=== PATIENT | female | born 1945 | race Caucasian/White ===

== ENCOUNTER → 2018-02-02 | Outpatient (CLI) | payer MEDICARE, OTHER ==
[2018-02-02 15:29] LABS: HCT 43.7 % (34.0-46.0); HGB 14.7 gm/dL (11.4-16.0); MCH 30.8 pg (25.0-35.0); MCHC 33.6 g/dL (31.0-37.0); MCV 91.4 fL (80.0-100.0); Mean Platelet Volume 7.1; Platelet Count 227 k/uL (150-450); RBC 4.78 m/uL (3.80-5.40); RDW 11.9 % (11.5-15.5)
[2018-02-02 15:36] LABS: Appearance,Urine Clear (Clear); Bacteria,Urine Rare /hpf; Bilirubin,Urine Negative (Negative); Blood,Urine Negative (Negative); Color,Urine Yellow; Glucose,Urine (UA) Negative (Negative); Ketones,Urine Negative (Negative); Leukocyte Esterase,Urine Large (Negative); Mucus,Urine Rare /hpf; Nitrite,Urine Negative (Negative); PH, Urine 6.5 (5.0-8.0); Protein,Urine Negative (Negative); RBC,Urine 1 /hpf (0-5); Specific Gravity,Urine 1.014 (1.001-1.035); Squamous Epithelial Cell,Urine 6 /hpf (0-4); Urobilinogen,Urine <2.0 mg/dL (<2.0); WBC,Urine 2 /hpf (0-5)
[2018-02-02 15:37] LABS: INR 1.1 (<1.2); Partial Thromboplastin Time 23.5 sec (22.0-30.0); Prothrombin Time 10.5 sec (9.0-12.0)
[2018-02-02 15:44] LABS: ALT 29 U/L (9-52); AST 23 U/L (14-36); Albumin 4.3 g/dL (3.5-5.0); Alkaline Phosphatase 70 U/L (38-126); Anion Gap 8 mmol/L; Blood Urea Nitrogen 13 mg/dL (7-17); Calcium 9.5 mg/dL (8.4-10.2); Carbon Dioxide 32 mmol/L (22-30); Chloride 102 mmol/L (98-107); Glucose 114 mg/dL (74-99); Potassium 4.3 mmol/L (3.5-5.1); Sodium 142 mmol/L (137-145); Total Bilirubin 0.4 mg/dL (0.2-1.3); Total Protein 7.3 g/dL (6.3-8.2)
== END | disposition home or self-care (01) ==
LOC: LABPAT 14:49
PROVIDERS: ATTEND Orthopaedic Surgery
DX: Z01.818 Encounter for other preprocedural examination (principal); Z01.812 Encounter for preprocedural laboratory examination
CPT/HCPCS: 80053; 81001; 85027; 85610; 85730; 87070; 93005

== ENCOUNTER 2018-02-21 09:05 | Inpatient (IN) | payer MEDICARE, OTHER ==
[2018-02-10 08:29] VITALS: BMI 26.4
[~2018-02-21 09:05] MED LIST: ACETAMINOPHEN TAB 500 MG TAB PO ONE; DEXAMETHASONE SOD PHOSPHATE 10 MG/ML 1 ML VIAL IV ONE; LIDOCAINE 1% 20 ML VIAL (10MG/ML) FOR IV START INTRADERMA PRN; MELOXICAM 7.5 MG TAB PO ONE; MIDAZOLAM 2 MG/2 ML VIAL IV PRN; ONDANSETRON 4 MG/2 ML VIAL IVP ONE; ROPIVACAINE 246.25 MG, EPINEPHrine 0.5 MG, KETOROLAC 30 MG, cloNIDine HCL/PF 80 MCG, WA... MISCELLANE ONE; TRANEXAMIC ACID 1,000 MG in SODIUM CHLORIDE 0.9% 50 ML IVPB ONE; ceFAZolin IN SWFI 2 GM/20 ML SYRINGE IVP ONE; fentaNYL (PF) 50 MCG/ML 2 ML AMP IV PRN
[2018-02-21] MEDS: LACTATED RINGERS 1,000 ML IV SCH (11:01)
[2018-02-21] MEDS ORDERED: MIDAZOLAM 2 MG/2 ML VIAL IVP ONE (11:48)
[2018-02-21] MEDS ORDERED: fentaNYL (PF) 50 MCG/ML 2 ML AMP IVP ONE (11:49)
[2018-02-21] MEDS ORDERED: ROPIVACAINE 1,100 MG, SODIUM CHLORIDE 0.9% 330 ML MISCELLANE PRN ×2 (11:57)
--- NOTE | 2018-02-21 11:57 | P.ONQ ---
Anesthesiology Proc Note - PNB - Peripheral Nerve Block Performed Left Adductor Canal Infusion Time Out Performed: Yes Procedure Start Time: 11:24 Indication: Acute Post-Operative Pain, Analgesia Specifically requested for management of pain by DrSophia: Silvino Kramer Sedation Type: Sedate with meaningful contact maintained Preparation: Sterile Prep Position: Supine Catheter: Indwelling Needle Types: Other (see comment) (PaJunk) Needle Size: 100mm (4") Needle Gauge: 18 Technique: Ultrasound Injectate: 0.5% Ropivacaine (see comment for volume) (20cc) Blood Aspirated: No Pain Paresthesia on Injection Noted: No Resistance on Injection: Normal Events: Uneventful and Well Tolerated
[2018-02-21] MEDS ORDERED: PROPOFOL 10 MG/ML 20 ML VIAL IV ONE (12:40)
[2018-02-21] MEDS ORDERED: MIDAZOLAM 2 MG/2 ML VIAL ONE (12:40)
[2018-02-21] MEDS ORDERED: SODIUM CHLORIDE 0.9% 100 ML BAG ONE (12:40)
[2018-02-21] MEDS ORDERED: ceFAZolin 3,000 MG in SODIUM CHLORIDE 0.9% IRRIGATIO 3,000 ML IRRIGATION ONE (12:40)
[2018-02-21] MEDS ORDERED: fentaNYL (PF) 50 MCG/ML 2 ML AMP ONE (12:40)
[2018-02-21] MEDS ORDERED: diphenhydrAMINE 50 MG/ML 1 ML VIAL ONE (12:40)
[2018-02-21] MEDS ORDERED: TRANEXAMIC ACID 1,000 MG/10 ML VIAL ONE (12:40)
[2018-02-21] MEDS ORDERED: LIDOCAINE 1% INJ 10MG/ML (20 ML MDV) ONE (12:40)
[2018-02-21] MEDS ORDERED: BISACODYL 10 MG SUPP RECTAL PRN (12:58)
[2018-02-21] MEDS ORDERED: MAGNESIUM HYDROXIDE 2,400 MG/10 ML CUP PO PRN (12:58)
[2018-02-21] MEDS ORDERED: hydrOXYzine PAMOATE 25 MG CAP PO PRN (12:58)
[2018-02-21] MEDS ORDERED: DIAZEPAM 5 MG TAB PO PRN ×2 (12:58)
[2018-02-21] MEDS ORDERED: NALOXONE 0.4 MG/ML 1 ML VIAL IV PRN (12:58)
[2018-02-21] MEDS ORDERED: NA PHOS,M-B/NA PHOS,DI-BA 133 ML ENEMA RECTAL PRN (12:58)
[2018-02-21] MEDS ORDERED: HYDROcodone/APAP 5-325MG 1 EACH TAB PO PRN (12:58)
[2018-02-21] MEDS ORDERED: ONDANSETRON 4 MG/2 ML VIAL IVP PRN (12:58)
[2018-02-21] MEDS ORDERED: HYDROmorphone 1 MG/ML 1 ML SYRINGE IVP PRN ×3 (12:58)
--- NOTE | 2018-02-21 13:49 | P.OP ---
Date of Procedure: 02/21/18 Preoperative Diagnosis: Severe osteoarthritis left knee Postoperative Diagnosis: Severe osteoarthritis left knee Procedure(s) Performed: Left total knee arthroplasty Implants: [employer] Nephew Oxinium femoral component size 4, left Keen & Nephew Ofelia II left nonporous tibial baseplate size 3 Keen [employer] Nephew size 9 mm Legion XLPE high flexion articular insert, size 3-4 Ke[employer]hew Ofelia II resurfacing patellar component, 29 mm All components were cemented using Murray bone cement.. The articulation is Oxinium on polyethylene. Anesthesia: spinal Surgeon: Silvino Kramer Nuclear Technologist #1: Yanni Lambert Estimated Blood Loss (ml): 50 Pathology: other (Bone and cartilage) Condition: stable Disposition: PACU Indications for Procedure: After failure of conservative treatment we discussed the surgical and nonsurgical treatment options at length. Patient wishes to proceed with a total knee arthroplasty. Complications specific to this procedure were discussed at length, including but not limited to infection, bleeding, stiffness , and nerve injury. Patient is aware of all these complications and informed consent was obtained Operative Findings: The operative findings are consistent with severe osteoarthritis of the left knee Description of Procedure: Patient was seen in the preoperative area consent was reviewed and operative site was marked with a skin marker. An adductor canal pain catheter was placed by anesthesia in the preoperative area. Patient was then brought to the operating room and given preoperative antibiotics intravenously. A spinal anesthetic was administered by the anesthesia department. A tourniquet was placed on the upper thigh and the lower extremity was prepped and draped in usual sterile fashion. A gram of transexamic acid was given. A universal timeout was then performed which confirmed the patient's name, surgical site, ALLERGIES, and consent. The lower extremity was then exsanguinated and tourniquet was inflated to 250 mmHg. A standard and anterior midline approach to the knee was performed. The skin and subcutaneous tissue was dissected down to the patellar tendon. A medial parapatellar arthrotomy was then performed. The knee was then extended, the patellar was everted, and the knee was again flexed. Anterior horns of both menisci were excised, and a release was performed to the posterior medial aspect of the knee. On gross visual inspection, there was complete loss of articular cartilage in the medial and patellofemoral joint spaces. There was also significant cartilage damage in the lateral compartment. There were multiple periarticular osteophytes which were then removed with a Ronguer. The femoral canal was then opened with the appropriate drill, and the intramedullary femoral cutting guide was then placed and set for 4 of valgus. The distal femoral cutting block was then pinned in place, and the distal femur was then cut. The cutting block was then removed and the cut was checked for flatness. Next, the sizing guide was then placed and set for 3 external rotation based off of the epicondylar axis and Whitesides line. After the femur was sized, the appropriate 4-in-1 cutting block was then pinned in place. The anterior condyles were cut without notching. The posterior and chamfer cuts were performed while protecting the collateral ligaments. The cutting block was then removed, and the femoral canal was plugged with autologous bone. Attention was then directed to the tibia. The remaining ACL was removed with a Ronguer, and the tibia was then gently subluxed forward with a large bent knee retractor. Any remaining menisci was excised. The posterior lateral corner was cauterized in order to cauterize the lateral geniculate artery. The extra medullary tibial cutting guide was then placed, set for the appropriate rotation , slope, and depth of resection. The proximal tibia cutting guide was then pinned in place. Proximal tibia was then cut and sized. Next trials were then placed with the appropriate-sized insert. The knee was able to fully extend and flex to 130 and was stable throughout all range of motion. The knee was then extended, patella everted. Patella was then measured, and then using an osteotomy guide, the patella was cut at the appropriate level. The patella was then measured and drilled and the patella trial was then placed. The knee was then taken through range of motion with the patella trial and the patella tracked normally. The knee was then extended patella trial was then removed and the patella was everted. Knee was then flexed and lug holes were drilled through the femoral trial and the femoral trial was then removed. The tibial was then exposed, and the tibial broach guide was then pinned in place after it was set for the appropriate rotation to allow for the most coverage without overhang. The tibia was then reamed and broached. The cut surfaces of bone were then irrigated with pulsatile lavage. The posterior structures were injected with the ropivacaine solution. The knee was also irrigated with Irrisept solution. The components were then opened, the cement was mixed, and the components were then cemented in place. The cement was allowed to harden with the knee in full extension. While the cement was hardening, the remaining soft tissues were then injected with a ropivacaine solution, which consisted of 246.25 mg of ropivacaine, 0.5 mg of epinephrine, 30 mg of Toradol, 80 g of clonidine, and 48.45 mL of sterile water, for a total of 100 mL of fluid injected. After the cemented hardened. The tourniquet was released, and hemostasis was obtained. A second gram of transexamic acid was given. The knee was again irrigated. The knee was again taken through range of motion and found to be stable throughout all range of motion of 0-130 , and the patella tracked normally. The fascia was then closed with #2 strata fix suture. The subcutaneous tissue was closed with 3-0 Vicryl and 3-0 strata fix. Dermabond glue was used for the skin and placed with the knee in flexion. The patient was placed in a sterile silver dressing. Patient was then transferred to recovery room in stable condition. The library clerical assistant SHAWNA Granados was required due the complexity surgery and the need for a skilled surgical nurse practitioner. She assisted in positioning, draping, retraction, and closure of the wound.
--- NOTE | 2018-02-21 14:37 | XR ---
EXAMINATION TYPE: XR knee limited LT DATE OF EXAM: 02/21/2018 COMPARISON: None HISTORY: Post knee replacement TECHNIQUE: 2 view left knee FINDINGS: Tibial and femoral components of in place. No acute fractures are evident. IMPRESSION: 1. Postsurgical changes at the left knee. No fractures evident post knee replacement.
[2018-02-21] MEDS: SODIUM CHLORIDE 0.9% 1,000 ML IV SCH (16:57)
[2018-02-21] MEDS: ceFAZolin IN SWFI 2 GM/20 ML SYRINGE IVP SCH (18:05)
[2018-02-21] MEDS: ASPIRIN 325 MG TAB PO SCH (20:23)
[2018-02-21] MEDS: SENNOSIDES-DOCUSATE SODIUM 1 EACH TAB PO SCH (20:23)
--- NOTE | 2018-02-21 20:29 | P.CONS ---
History of Present Illness - Reason for Consult Consult date: 02/21/18 Post-operative pain management Requesting physician: Silvino Kramer - Chief Complaint Knee pain - History of Present Illness Patient is 73 yo F with PMH of severe L knee osteoarthritis, s/p L total knee arthroplasty on 02/21/18, evaluated for elevated blood pressure. The patient endorsed 4/10 L knee pain. She patient denied any history of HTN and is free of active complaints. She further denied chest pain, SOB, headache, nausea, vomiting, fever, dizziness, or change in bowel habitus. Review of Systems Review of systems as per HPI Past Medical History Past Medical History: GERD/Reflux, Mitral Valve Prolapse (MVP), Osteoarthritis ( OA) History of Any Multi-Drug Resistant Organisms: None Reported Past Surgical History: Heart Catheterization, Joint Replacement Past Anesthesia/Blood Transfusion Reactions: No Reported Reaction Past Psychological History: Depression Smoking Status: Never smoker Past Alcohol Use History: Rare Past Drug Use History: None Reported - Past Family History Mother Family Medical History: No Reported History Medications and Allergies Home Medications Medication Instructions Recorded Confirmed Type Multivitamins, Thera [Multivitamin 1 tab PO DAILY 02/10/18 02/21/18 History (formulary)] Naproxen Sodium [Aleve] 220 mg PO DAILY PRN 02/10/18 02/21/18 History Waldorf-3 Fatty Acids/Fish Oil [Fish 1 each PO DAILY 02/10/18 02/21/18 History Oil 1,000 mg Softgel] Allergies Allergy/AdvReac Type Severity Reaction Status Date / Time No Known Allergies Allergy Verified 02/21/18 16:50 Physical Exam Vitals: Vital Signs Temp Pulse Pulse Resp BP BP Pulse Ox 02/21/18 19:37 98.4 F 95 18 135/70 97 02/21/18 18:30 71 146/89 02/21/18 18:15 87 145/73 02/21/18 18:00 79 150/84 02/21/18 17:45 86 159/80 02/21/18 17:30 70 136/77 02/21/18 17:15 71 124/76 02/21/18 17:00 76 135/63 02/21/18 16:45 97.2 F L 76 16 132/75 98 02/21/18 16:01 62 18 137/64 96 02/21/18 15:33 73 18 168/69 96 09/04/18 15:15 67 18 148/66 02/21/18 15:00 57 L 18 150/65 100 02/21/18 14:45 67 18 153/69 100 02/21/18 14:30 73 18 147/67 100 02/21/18 14:18 97.2 F L 81 16 145/65 100 02/21/18 11:50 78 16 157/70 100 02/21/18 10:58 98.0 F 94 16 178/79 98 Intake and Output 02/21/18 02/21/18 02/21/18 06:59 14:59 22:59 Intake Total 701 260 Output Total 50 Balance 651 260 Intake: IV 701 100 Oral 160 Output: Estimated Blood Loss 50 Other: Voiding Method Bedside Commode Weight 72.121 kg General: Awake, alert, in NAD, appears of stated age Derm: warm, dry Head: atraumatic, normocephalic, symmetric Eyes: EOMI, no lid lag, anicteric sclera Mouth: mucus membranes moist Cardiovascular: S1S2 reg, no murmur, rubs, or gallops Lungs: CTA bilateral, no rhonchi, no rales, no accessory muscle use Abdominal: soft, nontender to palpation, no guarding or rigidity, no appreciable organomegaly Ext: S/p L knee total arthroplasty, w/ SUSY bandage in place Neuro: Grossly unremarkable, no focal neuro deficits Psych: AAOx3, appropriate affect Assessment and Plan Plan: Elevated Blood pressure - Likely secondary to pain s/p L knee arthroplasty - Will recommend to c/w current pain management with Dilaudid and Narco L knee total arthroplasty - Plan as per Orthopedic surgery Time with Patient: Less than 30
[2018-02-22] MEDS: ceFAZolin IN SWFI 2 GM/20 ML SYRINGE IVP SCH (00:17)
[2018-02-22] MEDS: SODIUM CHLORIDE 0.9% 1,000 ML IV SCH ×2 (05:27→20:44)
[2018-02-22] MEDS: LACTATED RINGERS 1,000 ML IV SCH (05:27)
[2018-02-22] MEDS: MELOXICAM 7.5 MG TAB PO SCH (07:32)
[2018-02-22] MEDS: ASPIRIN 325 MG TAB PO SCH ×2 (07:32→20:46)
[2018-02-22] MEDS: HYDROcodone/APAP 5-325MG 1 EACH TAB PO PRN ×2 (07:35→12:42)
[2018-02-22 07:49] LABS: Basophils % (A) 0 %; Eosinophils % (A) 0 %; HCT 37.7 % (34.0-46.0); HGB 12.3 gm/dL (11.4-16.0); Lymphocytes # (A) 1.2 k/uL (1.0-4.8); Lymphocytes % (A) 11 %; MCH 30.6 pg (25.0-35.0); MCHC 32.7 g/dL (31.0-37.0); MCV 93.5 fL (80.0-100.0); Monocytes # (A) 0.5 k/uL (0-1.0); Monocytes % (A) 5 %; Neutrophils # (A) 9.3 k/uL (1.3-7.7); Neutrophils % (A) 83 %; Platelet Count 173 k/uL (150-450); RBC 4.03 m/uL (3.80-5.40); RDW 12.1 % (11.5-15.5); WBC 11.1 k/uL (3.8-10.6)
--- NOTE | 2018-02-22 08:52 | P.DS ---
Providers Date of admission: 02/21/18 10:29 Expected date of discharge: 02/22/18 Attending physician: Silvino Kramer Consults: 02/21/18 12:58 Consult Physician Routine Consulting Provider: Katie Kohli Consult Reason/Comments: medical management Do you want consulting provider notified?: Yes Primary care physician: Physician Nonstaff - Discharge Diagnosis(es) (1) Primary osteoarthritis of left knee Current Visit: Yes Status: Acute (2) S/P total knee arthroplasty Current Visit: Yes Status: Acute Hospital Course: This is a 73-year-old female with known history of degenerative arthritis of the left knee. The patient presents for evaluation. After discussion and consideration patient elects to proceed with total knee arthroplasty. The patient is seen preoperatively by Dr. Kramer and medically cleared for surgery by their primary care physician. Patient is admitted to [facility] on 02/21/2018 for total knee arthroplasty. The procedures performed without complication or sequelae. The patient is doing well postoperatively. Labs and vital signs are stable on day of discharge. On day of discharge patient's knee incision is healing well. There is minimal erythema. There is no drainage noted at this time. There is minimal soft tissue swelling to the knee. Patient has full foot and ankle motion without difficulty or pain. Neurovascular status to the left lower extremity is intact. Patient is discharged home in good condition. Please see med rec for accurate list of home medications. Plan - Discharge Summary Discharge Rx Participant: No New Discharge Prescriptions: New Aspirin 325 mg PO BID #60 tab HYDROcodone/APAP 5-325MG [[place] 5-325] 1 - 2 tab PO Q4-6H PRN #84 tab PRN Reason: Pain Sennosides [Senokot] 1 tab PO BID #60 tablet No Action Hidalgo-3 Fatty Acids/Fish Oil [Fish Oil 1,000 mg Softgel] 1 each PO DAILY Naproxen Sodium [Aleve] 220 mg PO DAILY PRN PRN Reason: Pain Multivitamins, Thera [Multivitamin (formulary)] 1 tab PO DAILY Discharge Medication List Multivitamins, Thera [Multivitamin (formulary)] 1 tab PO DAILY 02/10/18 [History ] Naproxen Sodium [Aleve] 220 mg PO DAILY PRN 02/10/18 [History] Hidalgo-3 Fatty Acids/Fish Oil [Fish Oil 1,000 mg Softgel] 1 each PO DAILY [History] Aspirin 325 mg PO BID #60 tab 02/22/18 [Rx] HYDROcodone/APAP 5-325MG [[place] 5-325] 1 - 2 tab PO Q4-6H PRN #84 tab 02/22/18 [ Rx] Sennosides [Senokot] 1 tab PO BID #60 tablet 02/22/18 [Rx] Follow up Appointment(s)/Referral(s): Silvino Kramer DO [Doctor of Osteopathic Medicine] - 2 Weeks Ambulatory/Diagnostic Orders: Continuous Passive Motion (CPM) Machine [DME.AMB1] Time Frame: 3 Weeks, Location : None Selected Activity/Diet/Wound Care/Special Instructions: Weightbearing as tolerated with a walker CPM 5-6h daily Leave dressing intact. May be removed by home care nurse in 10 days. May shower with dressing on. Please call [facility] with any questions or concerns, Discharge Disposition: HOME WITH HOME HEALTH SERVICES
--- NOTE | 2018-02-22 12:39 | P.PN ---
Subjective Progress Note Date: 02/22/18 The patient was seen and examined at the bedside. She was pleasant and in good spirits. S/p L total knee arthroplasty POD # 1. She is ambulating with walker and notes that her pain is significantly improved. She susbequently denied chest pain, SOB, nausea, vomiting, diarrhea, fever, chills, or cough. Objective - Vital Signs Vital signs: Vital Signs Temp 98.1 F 02/22/18 07:45 Pulse 80 02/22/18 07:45 Resp 16 02/22/18 07:45 BP 135/78 02/22/18 07:45 Pulse Ox 95 02/22/18 07:45 Intake & Output 02/21/18 02/22/18 02/22/18 18:59 06:59 18:59 Intake Total 801 737.5 500 Output Total 50 Balance 751 737.5 500 Weight 72.121 kg Intake: IV 801 Intake, IV Titration 577.5 Amount Sodium Chloride 0.9% 1, 577.5 000 ml @ 65 mls/hr IV . [id number] [facility] Rx#:[id number] Oral 160 500 Output: Estimated Blood Loss 50 Other: Voiding Method Bedside Commode Bedside Commode # Voids 1 - Exam General: Awake, alert, in NAD, appears of stated age Derm: warm, dry Head: atraumatic, normocephalic, symmetric Eyes: EOMI, no lid lag, anicteric sclera Mouth: mucus membranes moist Cardiovascular: S1S2 reg, no murmur, rubs, or gallops Lungs: CTA bilateral, no rhonchi, no rales, no accessory muscle use Abdominal: soft, nontender to palpation, no guarding or rigidity, no appreciable organomegaly Ext: L knee dressing in place, clean Neuro: Grossly unremarkable, no focal deficits Psych: AAOx3, appropriate affect - Labs CBC & Chem 7: 02/22/18 07:04 Labs: Abnormal Lab Results - Last 24 Hours (Table) 02/22/18 Range/Units 07:04 WBC 11.1 H (3.8-10.6) k/uL Neutrophils # 9.3 H (1.3-7.7) k/uL Assessment and Plan Plan: Elevated Blood pressure, resolved, s/p L knee total arthroplasty - C/w pain management as per Orthopedic service - Vitals and blood-work reviewed - The patient is medically optimized and ready for discharge, as per the discretion of orthopedic surgery Time with Patient: Less than 30
[2018-02-22] MEDS ORDERED: traMADol 50 MG TAB PO PRN (20:12)
[2018-02-22] MEDS: SENNOSIDES-DOCUSATE SODIUM 1 EACH TAB PO SCH (20:44)
[2018-02-23] MEDS: ACETAMINOPHEN TAB 325 MG TAB PO PRN ×2 (00:21→07:32)
[2018-02-23] MEDS: LACTATED RINGERS 1,000 ML IV SCH (06:21)
[2018-02-23 07:27] VITALS: BP 133/62; PULSE 86; RESP 16; TEMP 99.1
[2018-02-23] MEDS: ASPIRIN 325 MG TAB PO SCH (09:31)
[2018-02-23] MEDS: MELOXICAM 7.5 MG TAB PO SCH (09:31)
[2018-02-23] MEDS: SODIUM CHLORIDE 0.9% 1,000 ML IV SCH (12:03)
== END 2018-02-23 14:02 | disposition home health service (06) | DRG 470 ==
LOC: 2ORMAIN 10:29 → EDBD 11:40 → 3SUR 16:13
PROVIDERS: ADMIT Orthopaedic Surgery; ATTEND Orthopaedic Surgery
PROC: 0SRD069 Replacement of Left Knee Joint with Oxidized Zirconium on Polyethylene Synthetic Substitute, Cemented, Open Approach (ICD-10-PCS; principal; 2018-02-21 12:30)
DX: M17.12 Unilateral primary osteoarthritis, left knee (principal); I34.1 Nonrheumatic mitral (valve) prolapse; K21.9 Gastro-esophageal reflux disease without esophagitis; H91.90 Unspecified hearing loss, unspecified ear; Z79.899 Other long term (current) drug therapy; Z86.59 Personal history of other mental and behavioral disorders; Z82.49 Family history of ischemic heart disease and other diseases of the circulatory system; Z83.3 Family history of diabetes mellitus
CPT/HCPCS: 85025; 88300

== ENCOUNTER 2018-03-08 12:37 | Inpatient (IN) | payer MEDICARE, OTHER ==
[2018-03-08] MEDS ORDERED: SODIUM CHLORIDE 0.9% 500 ML IV STA (13:24)
--- NOTE | 2018-03-08 13:37 | ED ---
General Adult HPI - General Stated complaint: Black Stool Time Seen by Provider: 03/08/18 12:40 Source: RN notes reviewed - History of Present Illness Initial comments: This is a 73-year-old female who presents emergency Department coming in complaining of black stool. Patient states she went to [facility] because she thought she was constipated and she was also advised that time. They did not do a guaiac and sent her home with some stool softener. Patient states last night she was very anxious about the black stool and also felt as though she was weaker. Patient states currently she is not having any pain she is not short of breath she is not lightheaded or dizzy she still concerned about the black stool. Patient also states she's had since swelling of the left leg she had knee surgery on February 21 there is no pain to the left leg but the swelling has increased. Patient denies any chest pain patient denies any fever chills. Patient was just at the orthopedic surgeons office on Tuesday and he was very happy with the wound however it is a little more red today than it has been. - Related Data Previous Rx's Medication Instructions Recorded Aspirin 325 mg PO BID #60 tab 02/22/18 Sennosides [Senokot] 1 tab PO BID #60 tablet 02/22/18 Acetaminophen Tab [Tylenol Tab] 1 - 2 tab PO Q8H PRN #90 tablet 02/23/18 Allergies Allergy/AdvReac Type Severity Reaction Status Date / Time No Known Allergies Allergy Verified 03/08/18 13:51 Review of Systems ROS Statement: Those systems with pertinent positive or pertinent negative responses have been documented in the HPI. ROS Other: All systems not noted in ROS Statement are negative. Past Medical History Past Medical History: GERD/Reflux, Mitral Valve Prolapse (MVP), Osteoarthritis ( OA) History of Any Multi-Drug Resistant Organisms: None Reported Past Surgical History: Heart Catheterization, Joint Replacement Past Anesthesia/Blood Transfusion Reactions: No Reported Reaction Past Psychological History: Depression Smoking Status: Never smoker Past Alcohol Use History: Rare Past Drug Use History: None Reported - Past Family History Mother Family Medical History: No Reported History General Exam - General Exam Comments Initial Comments: GENERAL: Patient is well-developed and well-nourished. Patient is nontoxic and well- hydrated and is in mild distress. ENT: Neck is soft and supple. No significant lymphadenopathy is noted. Oropharynx is clear. Moist mucous membranes. Neck has full range of motion without eliciting any pain. EYES: The sclera were anicteric and conjunctiva were pink and moist. Extraocular movements were intact and pupils were equal round and reactive to light. Eyelids were unremarkable. PULMONARY: Unlabored respirations. Good breath sounds bilaterally. No audible rales rhonchi or wheezing was noted. CARDIOVASCULAR: There is a regular rate and rhythm without any murmurs gallops or rubs. ABDOMEN: Soft and nontender with normal bowel sounds. No palpable organomegaly was noted. There is no palpable pulsatile mass. RECTAL: On rectal exam there was no masses felt there was no obvious sites of bleeding noted stool was black SKIN: Skin is clear with no lesions or rashes and otherwise unremarkable. NEUROLOGIC: Patient is alert and oriented x3. Cranial nerves II through XII are grossly intact. Motor and sensory are also intact. Normal speech, volume and content. Symmetrical smile. MUSCULOSKELETAL: Normal extremities with adequate strength and full range of motion. No lower extremity swelling or edema. No calf tenderness. LYMPHATICS: No significant lymphadenopathy is noted PSYCHIATRIC: Patient is mildly anxious Course Vital Signs 03/08/18 03/08/18 13:06 15:12 Temperature 99.1 F Pulse Rate 110 H 83 Respiratory 18 Rate Blood Pressure 167/78 153/67 O2 Sat by Pulse 100 95 Oximetry Medical Decision Making - Medical Decision Making Patient's hemoglobin came back at 7.3 which is significantly lower than 95 which was 12.3. I gave the a should 1 unit of packed red blood cells. Patient was also guaiac positive. I spoke with Dr. Kohli she agreed to admit the patient admitted the patient I repeated CBCs every 6 hours I consult the GI. I ultrasounded the patient's left leg secondary to the swelling and the fact that the patient was postop 2 weeks. Ultrasound showed no DVT - Lab Data Result diagrams: 03/08/18 13:49 03/08/18 13:49 Lab Results 03/08/18 03/08/18 03/08/18 Range/Units 13:30 13:34 13:49 WBC (3.8-10.6) k/uL RBC (3.80-5.40) m/uL Hgb (11.4-16.0) gm/dL Hct (34.0-46.0) % MCV (80.0-100.0) fL MCH (25.0-35.0) pg MCHC (31.0-37.0) g/dL RDW (11.5-15.5) % Plt Count (150-450) k/uL Neutrophils % % Lymphocytes % % Monocytes % % Eosinophils % % Basophils % % Neutrophils # (1.3-7.7) k/uL Lymphocytes # (1.0-4.8) k/uL Monocytes # (0-1.0) k/uL Eosinophils # (0-0.7) k/uL Basophils # (0-0.2) k/uL PT 10.6 (9.0-12.0) sec INR 1.1 (<1.2) APTT 20.5 L (22.0-30.0) sec Sodium (137-145) mmol/L Potassium (3.5-5.1) mmol/L Chloride (98-107) mmol/L Carbon Dioxide (22-30) mmol/L Anion Gap mmol/L BUN (7-17) mg/dL Creatinine (0.52-1.04) mg/dL Est GFR (CKD-EPI)AfAm (>60 ml/min/1.73 sqM) Est GFR (CKD-EPI)NonAf (>60 ml/min/1.73 sqM) Glucose (74-99) mg/dL Plasma Lactic Acid Aman (0.7-2.0) mmol/L Calcium (8.4-10.2) mg/dL Magnesium (1.6-2.3) mg/dL Total Bilirubin (0.2-1.3) mg/dL AST (14-36) U/L ALT (9-52) U/L Alkaline Phosphatase (38-126) U/L Total Creatine Kinase (30-135) U/L CK-MB (CK-2) (0.0-2.4) ng/mL CK-MB (CK-2) Rel Index Troponin I (0.000-0.034) ng/mL Total Protein (6.3-8.2) g/dL Albumin (3.5-5.0) g/dL Urine Color Yellow Urine Appearance Clear (Clear) Urine pH 5.5 (5.0-8.0) Ur Specific [place] 1.010 (1.001-1.035) Urine Protein Negative (Negative) Urine Glucose (UA) Negative (Negative) Urine Ketones Negative (Negative) Urine Blood Negative (Negative) Urine Nitrite Negative (Negative) Urine Bilirubin Negative (Negative) Urine Urobilinogen <2.0 (<2.0) mg/dL Ur Leukocyte Esterase Negative (Negative) Stool Occult Blood Positive H (Negative) Blood Type Blood Type Recheck Antibody Screen Spec Expiration Date 03/08/18 03/08/18 03/08/18 Range/Units 13:49 13:49 13:49 WBC 11.1 H (3.8-10.6) k/uL RBC 2.42 L (3.80-5.40) m/uL Hgb 7.3 L D (11.4-16.0) gm/dL Hct 22.5 L (34.0-46.0) % MCV 92.9 (80.0-100.0) fL MCH 30.1 (25.0-35.0) pg MCHC 32.4 (31.0-37.0) g/dL RDW 14.3 (11.5-15.5) % Plt Count 478 H D (150-450) k/uL Neutrophils % 69 % Lymphocytes % 23 % Monocytes % 5 % Eosinophils % 1 % Basophils % 1 % Neutrophils # 7.7 (1.3-7.7) k/uL Lymphocytes # 2.5 (1.0-4.8) k/uL Monocytes # 0.6 (0-1.0) k/uL Eosinophils # 0.1 (0-0.7) k/uL Basophils # 0.1 (0-0.2) k/uL PT (9.0-12.0) sec INR (<1.2) APTT (22.0-30.0) sec Sodium 139 (137-145) mmol/L Potassium 3.8 (3.5-5.1) mmol/L Chloride 102 (98-107) mmol/L Carbon Dioxide 31 H (22-30) mmol/L Anion Gap 6 mmol/L BUN 12 (7-17) mg/dL Creatinine 0.60 (0.52-1.04) mg/dL Est GFR (CKD-EPI)AfAm >90 (>60 ml/min/1.73 sqM) Est GFR (CKD-EPI)NonAf 90 (>60 ml/min/1.73 sqM) Glucose 110 H (74-99) mg/dL Plasma Lactic Acid Aman (0.7-2.0) mmol/L Calcium 9.1 (8.4-10.2) mg/dL Magnesium 2.6 H (1.6-2.3) mg/dL Total Bilirubin 0.3 (0.2-1.3) mg/dL AST 32 (14-36) U/L ALT 40 (9-52) U/L Alkaline Phosphatase 66 (38-126) U/L Total Creatine Kinase 43 (30-135) U/L CK-MB (CK-2) 0.5 (0.0-2.4) ng/mL CK-MB (CK-2) Rel Index 1.2 Troponin I <0.012 (0.000-0.034) ng/mL Total Protein 6.0 L (6.3-8.2) g/dL Albumin 3.4 L (3.5-5.0) g/dL Urine Color Urine Appearance (Clear) Urine pH (5.0-8.0) Ur Specific [place] (1.001-1.035) Urine Protein (Negative) Urine Glucose (UA) (Negative) Urine Ketones (Negative) Urine Blood (Negative) Urine Nitrite (Negative) Urine Bilirubin (Negative) Urine Urobilinogen (<2.0) mg/dL Ur Leukocyte Esterase (Negative) Stool Occult Blood (Negative) Blood Type Blood Type Recheck Antibody Screen Spec Expiration Date 03/08/18 03/08/18 Range/Units 13:49 13:49 WBC (3.8-10.6) k/uL RBC (3.80-5.40) m/uL Hgb (11.4-16.0) gm/dL Hct (34.0-46.0) % MCV (80.0-100.0) fL MCH (25.0-35.0) pg MCHC (31.0-37.0) g/dL RDW (11.5-15.5) % Plt Count (150-450) k/uL Neutrophils % % Lymphocytes % % Monocytes % % Eosinophils % % Basophils % % Neutrophils # (1.3-7.7) k/uL Lymphocytes # (1.0-4.8) k/uL Monocytes # (0-1.0) k/uL Eosinophils # (0-0.7) k/uL Basophils # (0-0.2) k/uL PT (9.0-12.0) sec INR (<1.2) APTT (22.0-30.0) sec Sodium (137-145) mmol/L Potassium (3.5-5.1) mmol/L Chloride (98-107) mmol/L Carbon Dioxide (22-30) mmol/L Anion Gap mmol/L BUN (7-17) mg/dL Creatinine (0.52-1.04) mg/dL Est GFR (CKD-EPI)AfAm (>60 ml/min/1.73 sqM) Est GFR (CKD-EPI)NonAf (>60 ml/min/1.73 sqM) Glucose (74-99) mg/dL Plasma Lactic Acid [place]man 0.9 (0.7-2.0) mmol/L Calcium (8.4-10.2) mg/dL Magnesium (1.6-2.3) mg/dL Total Bilirubin (0.2-1.3) mg/dL AST (14-36) U/L ALT (9-52) U/L Alkaline Phosphatase (38-126) U/L Total Creatine Kinase (30-135) U/L CK-MB (CK-2) (0.0-2.4) ng/mL CK-MB (CK-2) Rel Index Troponin I (0.000-0.034) ng/mL Total Protein (6.3-8.2) g/dL Albumin (3.5-5.0) g/dL Urine Color Urine Appearance (Clear) Urine pH (5.0-8.0) Ur Specific [place] (1.001-1.035) Urine Protein (Negative) Urine Glucose (UA) (Negative) Urine Ketones (Negative) Urine Blood (Negative) Urine Nitrite (Negative) Urine Bilirubin (Negative) Urine Urobilinogen (<2.0) mg/dL Ur Leukocyte Esterase (Negative) Stool Occult Blood (Negative) Blood Type A Negative Blood Type Recheck CABO Indicated Antibody Screen NEGATIVE Spec Expiration Date 03/11/2018 - 2344 Critical Care Time Critical Care Time: Yes Total Critical Care Time: 35 Disposition Clinical Impression: GI bleed, Anemia Disposition: ADMITTED IP TO THIS HOSP Referrals: Nonstaff,Physician [Primary Care Provider] - 1-2 days Time of Disposition: 15:43
[2018-03-08 13:59] LABS: Appearance,Urine Clear (Clear); Bilirubin,Urine Negative (Negative); Blood,Urine Negative (Negative); Color,Urine Yellow; Glucose,Urine (UA) Negative (Negative); Ketones,Urine Negative (Negative); Leukocyte Esterase,Urine Negative (Negative); Nitrite,Urine Negative (Negative); PH, Urine 5.5 (5.0-8.0); Protein,Urine Negative (Negative); Urobilinogen,Urine <2.0 mg/dL (<2.0)
[2018-03-08 14:09] LABS: Basophils # (A) 0.1 k/uL (0-0.2); Basophils % (A) 1 %; Eosinophils # (A) 0.1 k/uL (0-0.7); Eosinophils % (A) 1 %; HCT 22.5 % (34.0-46.0); Lymphocytes # (A) 2.5 k/uL (1.0-4.8); Lymphocytes % (A) 23 %; MCH 30.1 pg (25.0-35.0); MCHC 32.4 g/dL (31.0-37.0); MCV 92.9 fL (80.0-100.0); Mean Platelet Volume 7.2; Monocytes # (A) 0.6 k/uL (0-1.0); Monocytes % (A) 5 %; Neutrophils # (A) 7.7 k/uL (1.3-7.7); Neutrophils % (A) 69 %; RBC 2.42 m/uL (3.80-5.40); RDW 14.3 % (11.5-15.5); WBC 11.1 k/uL (3.8-10.6)
[2018-03-08 14:21] LABS: HGB 7.3 gm/dL (11.4-16.0)
[2018-03-08 14:22] LABS: Platelet Count 478 k/uL (150-450)
[2018-03-08 14:29] LABS: ALT 40 U/L (9-52); AST 32 U/L (14-36); Albumin 3.4 g/dL (3.5-5.0); Alkaline Phosphatase 66 U/L (38-126); Anion Gap 6 mmol/L; Blood Urea Nitrogen 12 mg/dL (7-17); Calcium 9.1 mg/dL (8.4-10.2); Carbon Dioxide 31 mmol/L (22-30); Chloride 102 mmol/L (98-107); Glucose 110 mg/dL (74-99); Magnesium 2.6 mg/dL (1.6-2.3); Potassium 3.8 mmol/L (3.5-5.1); Sodium 139 mmol/L (137-145); Total Bilirubin 0.3 mg/dL (0.2-1.3)
[2018-03-08 14:30] LABS: INR 1.1 (<1.2); Prothrombin Time 10.6 sec (9.0-12.0)
--- NOTE | 2018-03-08 14:32 | XR ---
EXAMINATION TYPE: XR KUB DATE OF EXAM: 03/08/2018 COMPARISON: None INDICATION: Abdomen pain black tarry stools TECHNIQUE: Single view abdomen upright view FINDINGS: Air-fluid levels are within the ascending colon and transverse colon. Nonspecific small bowel gas is present. Psoas margins are normal. No organomegaly is present. No suspicious air-fluid levels. No free air is evident. IMPRESSION: 1. Scattered air-fluid levels within the ascending and proximal transverse colon. Correlate for gastr oenteritis.
[2018-03-08 14:34] LABS: Partial Thromboplastin Time 20.5 sec (22.0-30.0)
--- NOTE | 2018-03-08 15:23 | US ---
EXAMINATION TYPE: US venous doppler duplex LE LT DATE OF EXAM: 03/08/2018 3:07 PM COMPARISON: NONE CLINICAL HISTORY: Pain. Left Knee replacement 02/21/18. Redness left lower leg. SIDE PERFORMED: Left TECHNIQUE: The lower extremity deep venous system is examined utilizing real time linear array sonog shari with graded compression, doppler sonography and color-flow sonography. VESSELS IMAGED: External Iliac Vein (EIV) Common Femoral Vein Deep Femoral Vein Greater Saphenous Vein * Femoral Vein Popliteal Vein Small Saphenous Vein * Proximal Calf Veins (* superficial vessels) Left Leg: Negative for DVT IMPRESSION: 1. Left lower extremity ultrasound negative for deep venous thrombosis.
[2018-03-08 15:26] LABS: Creatine Kinase 43 U/L (30-135)
[2018-03-08 15:40] LABS: Creatine Kinase MB 0.5 ng/mL (0.0-2.4); Troponin I <0.012 ng/mL (0.000-0.034)
[2018-03-08] MEDS ORDERED: SODIUM CHLORIDE 0.9% 1,000 ML IV ONE (15:43)
--- NOTE | 2018-03-08 19:20 | P.HPIM ---
History of Present Illness H&P Date: 03/08/18 Chief Complaint: Black stools The patient is a 73 yo F with PMH of L knee OA s/p total arthroplasty (02/21/18) and mitral valve prolapse presented to the ED due to multiple episodes of black tarry stools. The patient notes that she was seen at [facility] for constipation over the weekend and was given enemas with subsequent resolution of her constipation. She however then noticed black tarry stools that gradually worsened over the past 2-3 days and then developed lethargy and lightheadness yesterday which prompted her to come to the ED. The patient notes compliance with her Aspirin 325 mg po BID. She denied any abdominal pain, nausea, vomiting , hematochezia, chest pain, SOB, or palpitations. Review of Systems Pertinent positives and negatives as discussed in HPI, a complete review of systems was performed and all other systems are negative. Past Medical History Past Medical History: GERD/Reflux, Osteoarthritis (OA), Pneumonia History of Any Multi-Drug Resistant Organisms: None Reported Past Surgical History: Heart Catheterization, Joint Replacement Additional Past Surgical History / Comment(s): total lt knee replacement Past Anesthesia/Blood Transfusion Reactions: No Reported Reaction Smoking Status: Never smoker - Past Family History Mother Family Medical History: Dementia Father Additional Family Medical History / Comment(s): father was healthy lived to be almost 101 years old Medications and Allergies Home Medications Medication Instructions Recorded Confirmed Type Aspirin 325 mg PO BID #60 tab 02/22/18 03/08/18 Rx Sennosides [Senokot] 1 tab PO BID #60 tablet 02/22/18 03/08/18 Rx Acetaminophen Tab [Tylenol Tab] 1 - 2 tab PO Q8H PRN #90 tablet 02/23/18 Rx Allergies Allergy/AdvReac Type Severity Reaction Status Date / Time No Known Allergies Allergy Verified 03/08/18 13:51 Physical Exam Vitals: Vital Signs Temp Pulse Resp BP Pulse Ox 03/08/18 18:52 98.5 F 92 18 155/56 96 03/08/18 18:04 98.5 F 92 18 155/66 96 03/08/18 17:21 97.7 F 93 18 160/70 03/08/18 16:51 97.6 F 95 18 164/69 03/08/18 16:41 97.6 F 90 16 151/69 03/08/18 16:07 100 171/80 98 03/08/18 15:37 92 162/71 03/08/18 15:12 83 153/67 95 03/08/18 13:06 99.1 F 110 H 18 167/78 100 Intake and Output 03/08/18 03/08/18 03/08/18 06:59 14:59 22:59 Intake Total 0 Balance 0 Intake: Blood Product 0 Rc As-1 Unit 0 [id number] Other: Weight 73.346 kg General: [non toxic], [no distress], [appears at stated age], [normal weight] Derm: [no unusual rashes/lesions] [no unusual ecchymoses], [warm], [dry] Head: [atraumatic], [normocephalic], [symmetric] Eyes: [EOMI], [no lid lag], [anicteric sclera], [pupils equal round reactive to light] ENT: [Nose and ears atraumatic], [no thrush], [no pharyngeal erythema] Neck: [No thyromegaly], [no cervical lymphadenopathy], [trachea midline], [ supple] Mouth: [no lip lesion], [mucus membranes moist] Cardiovascular: [S1S2 reg], [no murmur], [positive posterior tibial pulse bilateral], [no edema], [capillary refill less than 2 seconds] Lungs: [CTA bilateral], [no rhonchi, no rales] , [no accessory muscle use] Abdominal: [soft], [mild tenderness to palpation of RLQ and LLQ], [no guarding] , [no appreciable organomegaly], [normal bowel sounds] Ext: [no gross muscle atrophy], [muscle strength 5 out of 5 in all 4 extremities grossly], [no contractures], Neuro: [ CN II-XI grossly intact], [light touch intact all 4 extremities], [ finger to nose within normal limits], Psych: [Alert], [oriented], [appropriate affect] Results CBC & Chem 7: 03/08/18 13:49 03/08/18 13:49 Labs: Abnormal Lab Results - Last 24 Hours (Table) 03/08/18 03/08/18 03/08/18 Range/Units 13:30 13:49 13:49 WBC 11.1 H (3.8-10.6) k/uL RBC 2.42 L (3.80-5.40) m/uL Hgb 7.3 L D (11.4-16.0) gm/dL Hct 22.5 L (34.0-46.0) % Plt Count 478 H D (150-450) k/uL APTT 20.5 L (22.0-30.0) sec Carbon Dioxide (22-30) mmol/L Glucose (74-99) mg/dL Magnesium (1.6-2.3) mg/dL Total Protein (6.3-8.2) g/dL Albumin (3.5-5.0) g/dL Stool Occult Blood Positive H (Negative) Crossmatch 03/08/18 03/08/18 Range/Units 13:49 13:49 WBC (3.8-10.6) k/uL RBC (3.80-5.40) m/uL Hgb (11.4-16.0) gm/dL Hct (34.0-46.0) % Plt Count (150-450) k/uL APTT (22.0-30.0) sec Carbon Dioxide 31 H (22-30) mmol/L Glucose 110 H (74-99) mg/dL Magnesium 2.6 H (1.6-2.3) mg/dL Total Protein 6.0 L (6.3-8.2) g/dL Albumin 3.4 L (3.5-5.0) g/dL Stool Occult Blood (Negative) Crossmatch See Detail Thrombosis Risk Factor Assmnt - Choose All That Apply Any of the Below Risk Factors Present?: Yes Each Factor Represents 1 point: History of prior major surgery (<1month) Each Risk Factor Represents 3 Points: Age 75 years or older Thrombosis Risk Factor Assessment Total Risk Factor Score: 4 Thrombosis Risk Factor Assessment Level: Moderate Risk Assessment and Plan Plan: Acute blood loss anemia secondary to likely UGIB, in setting of Aspirin use post -operatively - S/p 1 U pRBCs - Will monitor CBC q6h and replace to maintain Hgb > 7. - Will give IVFs NS @ 75 cc/hr - GI consulted - NPO for now - Will hold Aspirin for now - Will give Protonix Leukocytosis - Likely reactive - Will monitor DVT//GI prophy. - IPCDs - Protonix The patient is admitted with an anticipated greater than 2 midnight stay for evaluation of acute blood loss anemia due to GI bleeding. CODE STATUS:Full-code Discussed with: Patient Anticipated discharge date: 03/10/[address]: Home A total of 50 minutes was spent on the care of this complex patient more than 50 % of the time was spent in counseling and care coordination.
[2018-03-08] MEDS: PANTOPRAZOLE 40 MG TABLET PO SCH (20:41)
[2018-03-08 21:29] LABS: Basophils # (A) 0.1 k/uL (0-0.2); Basophils % (A) 1 %; Eosinophils % (A) 1 %; HCT 24.1 % (34.0-46.0); HGB 8.1 gm/dL (11.4-16.0); Hypochromasia Slight; Lymphocytes # (A) 1.9 k/uL (1.0-4.8); Lymphocytes % (A) 22 %; MCH 31.7 pg (25.0-35.0); MCHC 33.6 g/dL (31.0-37.0); MCV 94.4 fL (80.0-100.0); Mean Platelet Volume 6.9; Monocytes # (A) 0.6 k/uL (0-1.0); Monocytes % (A) 7 %; Neutrophils % (A) 68 %; Platelet Count 418 k/uL (150-450); RBC 2.56 m/uL (3.80-5.40); RDW 14.8 % (11.5-15.5); WBC 8.8 k/uL (3.8-10.6)
[2018-03-09 08:30] LABS: HCT 28.9 % (34.0-46.0); HGB 9.1 gm/dL (11.4-16.0); Hypochromasia Slight; MCH 29.9 pg (25.0-35.0); MCHC 31.5 g/dL (31.0-37.0); Mean Platelet Volume 7.1; Platelet Count 486 k/uL (150-450); RBC 3.04 m/uL (3.80-5.40); RDW 14.4 % (11.5-15.5); WBC 10.4 k/uL (3.8-10.6)
[2018-03-09 08:43] LABS: ALT 36 U/L (9-52); AST 35 U/L (14-36); Albumin 3.5 g/dL (3.5-5.0); Alkaline Phosphatase 69 U/L (38-126); Anion Gap 10 mmol/L; Blood Urea Nitrogen 10 mg/dL (7-17); Calcium 8.8 mg/dL (8.4-10.2); Carbon Dioxide 25 mmol/L (22-30); Chloride 108 mmol/L (98-107); Potassium 4.2 mmol/L (3.5-5.1); Sodium 143 mmol/L (137-145); Total Bilirubin 0.5 mg/dL (0.2-1.3); Total Protein 6.2 g/dL (6.3-8.2)
[2018-03-09 08:44] LABS: Glucose 93 mg/dL (74-99)
[2018-03-09] MEDS ORDERED: PANTOPRAZOLE 40 MG TABLET PO SCH (09:00)
[2018-03-09] MEDS: PANTOPRAZOLE 40 MG TABLET PO SCH (09:00)
[2018-03-09] MEDS: PANTOPRAZOLE 40 MG/10 ML VIAL IVP SCH ×2 (10:55→21:32)
--- NOTE | 2018-03-09 12:27 | P.CONS ---
History of Present Illness - Reason for Consult Consult date: 03/09/18 anemia GI bleed Requesting physician: Katie Kohli - Chief Complaint Melena - History of Present Illness 73-year-old female PMH GERD, depression, recent left total knee replacement February 21 maintained on full strength aspirin twice a day admitted with reports of constipation unresolved with [id number] stool softeners and black colored bowel movements 1 week. Denies fever chills hematemesis or hematochezia. No history of GI bleed. Increased left lower abdominal tenderness with constipation. Denies alcohol other aspirin products or NSAID usage. No history of EGD. Last colonoscopy to her memory about 13 years ago. Admission hemoglobin 7.3 receive 1 unit of blood presently 9.1. MCV 92. Platelet 478. INR 1.1. BUN 12. Creatinine 0.6. FOBT positive. Previous hemoglobin 02/22/2018 was 12.3. Left lower extremity venous Doppler negative for DVT. Review of Systems Constitutional: Denies fever, chills, sweats, weight gain, or loss. HEENT: Negative for migraines, blurred vision or loss, earaches, drainage, tinnitus, oral mucosal lesions, dysphagia, or odynophagia. CARDIAC: Negative for chest pain, arrhythmias, or palpitation. RESPIRATORY: Negative for shortness of breath, hemoptysis, cough, or sputum production. GI: See HPI for pertinent findings. : Negative for hematuria, urgency, frequency, polyuria, or dysuria. GYNc: Denies possibility of . Negative vaginal discharge. MUSCULOSKELETAL: Negative for muscle aches, swelling, arthritis, and arthralgias. NEUROLOGIC: Negative for stroke or TIA. ENDOCRINE: Negative for thyroid problems. SKIN: Negative for rash or itching. PSYCHIATRIC: Negative history for depression and anxiety Past Medical History Past Medical History: GERD/Reflux, Osteoarthritis (OA), Pneumonia History of Any Multi-Drug Resistant Organisms: None Reported Past Surgical History: Heart Catheterization, Joint Replacement Additional Past Surgical History / Comment(s): total lt knee replacement Past Anesthesia/Blood Transfusion Reactions: No Reported Reaction Smoking Status: Never smoker - Past Family History Mother Family Medical History: Dementia Father Additional Family Medical History / Comment(s): father was healthy lived to be almost 101 years old Medications and Allergies Home Medications Medication Instructions Recorded Confirmed Type Aspirin 325 mg PO BID #60 tab 02/22/18 03/08/18 Rx Sennosides [Senokot] 1 tab PO BID #60 tablet 02/22/18 03/08/18 Rx Acetaminophen Tab [Tylenol Tab] 1 - 2 tab PO Q8H PRN #90 tablet 02/23/18 Rx Allergies Allergy/AdvReac Type Severity Reaction Status Date / Time No Known Allergies Allergy Verified 03/08/18 13:51 Physical Exam Vitals: Vital Signs Temp Pulse Pulse Resp BP BP Pulse Ox 03/09/18 07:00 97.6 F 87 20 161/75 99 03/08/18 23:00 98.8 F 99 18 154/73 96 03/08/18 19:59 98.2 F 92 18 145/67 96 03/08/18 19:57 98.2 F 92 18 145/67 96 03/08/18 19:30 18 03/08/18 18:52 98.5 F 92 18 155/56 96 03/08/18 18:04 98.5 F 92 18 155/66 96 03/08/18 17:21 97.7 F 93 18 160/70 03/08/18 16:51 97.6 F 95 18 164/69 03/08/18 16:41 97.6 F 90 16 151/69 03/08/18 16:07 100 171/80 98 03/08/18 15:37 92 162/71 03/08/18 15:12 83 153/67 95 03/08/18 13:06 99.1 F 110 H 18 167/78 100 Intake and Output 03/08/18 03/09/18 03/09/18 22:59 06:59 14:59 Intake Total 310 Balance 310 Intake: Blood Product 310 Rc As-1 Unit 310 [id number] Other: # Bowel Movements 2 5 General appearance: The patient is alert, oriented, in no acute distress. HET: Head is normocephalic and atraumatic. Pupils are equal and reactive. Oropharynx is clear without lesions. Neck: Supple without lymphadenopathy. Trachea midline. Heart: S1 S2. Regular rate and rhythm. Lungs: No crackles or wheezes are heard. Abdomen: Soft, mild left lower quadrant tenderness, nondistended with bowel sounds. No peritoneal signs. No palpable organomegaly or masses. Extremities: Left knee +2 edema incision well approximated without erythema or drainage. Normal skin color and turgor. No cyanosis, rash, ulceration, clubbing, or edema. Radial and pedal pulses are 2/4 bilaterally. Neurological: No focal deficits. Strength and sensation are grossly intact. Results CBC & Chem 7: 03/09/18 08:01 03/09/18 08:01 Labs: Abnormal Lab Results - Last 24 Hours (Table) 03/08/18 03/08/18 03/08/18 Range/Units 13:30 13:49 13:49 WBC 11.1 H (3.8-10.6) k/uL RBC 2.42 L (3.80-5.40) m/uL Hgb 7.3 L D (11.4-16.0) gm/dL Hct 22.5 L (34.0-46.0) % Plt Count 478 H D (150-450) k/uL APTT 20.5 L (22.0-30.0) sec Chloride (98-107) mmol/L Carbon Dioxide (22-30) mmol/L Glucose (74-99) mg/dL Magnesium (1.6-2.3) mg/dL Total Protein (6.3-8.2) g/dL Albumin (3.5-5.0) g/dL Stool Occult Blood Positive H (Negative) Crossmatch 03/08/18 03/08/18 03/08/18 Range/Units 13:49 13:49 20:43 WBC (3.8-10.6) k/uL RBC 2.56 L (3.80-5.40) m/uL Hgb 8.1 L (11.4-16.0) gm/dL Hct 24.1 L (34.0-46.0) % Plt Count (150-450) k/uL APTT (22.0-30.0) sec Chloride (98-107) mmol/L Carbon Dioxide 31 H (22-30) mmol/L Glucose 110 H (74-99) mg/dL Magnesium 2.6 H (1.6-2.3) mg/dL Total Protein 6.0 L (6.3-8.2) g/dL Albumin 3.4 L (3.5-5.0) g/dL Stool Occult Blood (Negative) Crossmatch See Detail 03/09/18 03/09/18 Range/Units 08:01 08:01 WBC (3.8-10.6) k/uL RBC 3.04 L (3.80-5.40) m/uL Hgb 9.1 L (11.4-16.0) gm/dL Hct 28.9 L (34.0-46.0) % Plt Count 486 H (150-450) k/uL APTT (22.0-30.0) sec Chloride 108 H (98-107) mmol/L Carbon Dioxide (22-30) mmol/L Glucose (74-99) mg/dL Magnesium (1.6-2.3) mg/dL Total Protein 6.2 L (6.3-8.2) g/dL Albumin (3.5-5.0) g/dL Stool Occult Blood (Negative) Crossmatch Assessment and Plan (1) GI bleed Narrative/Plan: 73-year-old female admitted with left lower quadrant abdominal pain constipation of black colored melanotic bowel movements approximately 1 week recent left total knee replacement February 21 maintained on twice a day full- strength aspirin possible upper GI source peptic ulcer disease possible colonic source possible small bowel pathology. Underlying neoplasm could not be excluded. Current Visit: Yes Status: Acute Code(s): K92.2 - GASTROINTESTINAL HEMORRHAGE, UNSPECIFIED SNOMED Code(s): 28279058 (2) Acute blood loss anemia Current Visit: Yes Status: Acute Code(s): D62 - ACUTE POSTHEMORRHAGIC ANEMIA SNOMED Code(s): 158918906 (3) Status post total left knee replacement Current Visit: No Status: Acute Code(s): Z96.652 - PRESENCE OF LEFT ARTIFICIAL KNEE JOINT SNOMED Code(s): 0132325107119 (4) Melena Current Visit: Yes Status: Acute Code(s): K92.1 - MELENA SNOMED Code(s): 0924879 (5) Constipation Current Visit: Yes Status: Acute Code(s): K59.00 - CONSTIPATION, UNSPECIFIED SNOMED Code(s): 29654572 (6) Positive occult stool blood test Current Visit: Yes Status: Acute Code(s): R19.5 - OTHER FECAL ABNORMALITIES SNOMED Code(s): 47522294 (7) Abdominal pain Current Visit: Yes Status: Acute Code(s): R10.9 - UNSPECIFIED ABDOMINAL PAIN SNOMED Code(s): 82455536 Plan: 1. Clear liquid diet. CBC monitoring. Protonix 40 mg daily. We'll proceed with EGD colonoscopy tomorrow. The stone dresser has discussed the risks, benefits and alternative therapies for the above-mentioned procedure and for both sedation/analgesia as well as necessary blood product administration, if indicated, as they pertain to this patient. The patient has indicated understanding and acceptance of the risks and procedures discussed. Thank you for this kind referral and the opportunity to participate in the care of your patient. This consultation was discussed with Dr. Multani. The impression and plan of care have been directed as dictated.
[2018-03-09] MEDS ORDERED: BISACODYL 5 MG TABLET.DR PO STA (12:29)
[2018-03-09] MEDS ORDERED: PEG 3350-NA SULF,BICARB,CL/KCL 4,000 ML BOTTLE PO ONE ×2 (13:57→14:00)
[2018-03-09] MEDS ORDERED: ONDANSETRON 4 MG/2 ML VIAL IVP PRN (15:29)
--- NOTE | 2018-03-09 19:44 | P.PN ---
Subjective Progress Note Date: 03/09/18 Patient was seen and examined at the bedside. The patient notes that she has not noticed any further episodes of black tarry stools. She further denied any episodes of abdominal pain, nausea, vomiting, diarrhea, constipation, fever, chills, shortness of breath, chest pain, cough. Objective - Vital Signs Vital signs: Vital Signs Temp 98.8 F 03/09/18 15:00 Pulse 100 03/09/18 15:00 Resp 16 03/09/18 15:00 BP 132/62 03/09/18 15:00 Pulse Ox 100 03/09/18 15:00 Intake & Output 03/09/18 03/09/18 03/10/18 06:59 18:59 06:59 Intake Total 310 Balance 310 Intake: Blood Product 310 Rc As-1 Unit 310 [id number] Other: # Voids 3 # Bowel Movements 5 5 - Exam General: Non-toxic, in no acute distress HEENT: NC/AT, anicteric sclerae, moist conjunctiva, no lid-lag, PERRLA, oropharynx clear, no erythema, exudates Cardiovascular: S1/S2 wnl, no murmurs, rubs, or gallops Lungs: Clear to auscultation, normal respiratory effort, no accessory muscle use Abdominal: Soft, nontender, non-distended, no guarding, rebound, or rigidity, normoactive bowel sounds Skin: Warm, dry Extremities: No edema or contractures Psychiatric: Alert and oriented to person, place and time, appropriate affect, Intact judgment Neuro: CN II-XII grossly intact, no focal motor deficits - Labs CBC & Chem 7: 03/09/18 08:01 03/09/18 08:01 Labs: Abnormal Lab Results - Last 24 Hours (Table) 03/08/18 03/08/18 03/09/18 Range/Units 13:49 20:43 08:01 RBC 2.56 L 3.04 L (3.80-5.40) m/uL Hgb 8.1 L 9.1 L (11.4-16.0) gm/dL Hct 24.1 L 28.9 L (34.0-46.0) % Plt Count 486 H (150-450) k/uL Chloride (98-107) mmol/L Total Protein (6.3-8.2) g/dL Crossmatch See Detail 03/09/18 Range/Units 08:01 RBC (3.80-5.40) m/uL Hgb (11.4-16.0) gm/dL Hct (34.0-46.0) % Plt Count (150-450) k/uL Chloride 108 H (98-107) mmol/L Total Protein 6.2 L (6.3-8.2) g/dL Crossmatch Assessment and Plan Plan: Acute blood loss anemia secondary to likely UGIB, in setting of Aspirin use post -operatively - Hgb 9.1 s/p 1 U pRBCs - C/w IVFs 75 cc/hr - GI consulted, recs appreciated - Scheduled for EGD/colonoscopy in a.m. - We'll continue with nothing by mouth for now Leukocytosis - Likely reactive -Resolved DVT//GI prophy. - IPCDs - Protonix The patient is admitted with an anticipated greater than 2 midnight stay for evaluation of acute blood loss anemia due to GI bleeding. CODE STATUS:Full-code Discussed with: Patient Anticipated discharge date: 03/10/[address]: Home A total of 50 minutes was spent on the care of this complex patient more than 50 % of the time was spent in counseling and care coordination.
[2018-03-10] MEDS: PANTOPRAZOLE 40 MG/10 ML VIAL IVP SCH ×2 (07:45→20:03)
[2018-03-10 08:31] LABS: Basophils % (A) 0 %; Eosinophils # (A) 0.1 k/uL (0-0.7); Eosinophils % (A) 1 %; HCT 24.2 % (34.0-46.0); HGB 7.7 gm/dL (11.4-16.0); Hypochromasia Slight; Lymphocytes # (A) 1.2 k/uL (1.0-4.8); Lymphocytes % (A) 12 %; MCH 30.2 pg (25.0-35.0); MCHC 31.9 g/dL (31.0-37.0); MCV 94.8 fL (80.0-100.0); Mean Platelet Volume 7.3; Monocytes # (A) 0.5 k/uL (0-1.0); Monocytes % (A) 6 %; Neutrophils % (A) 81 %; Platelet Count 426 k/uL (150-450); RBC 2.56 m/uL (3.80-5.40); RDW 14.1 % (11.5-15.5); WBC 9.9 k/uL (3.8-10.6)
[2018-03-10] MEDS ORDERED: LACTATED RINGERS 1,000 ML IV ONE ×2 (12:03→12:55)
[2018-03-10] MEDS ORDERED: PROPOFOL 10 MG/ML 20 ML VIAL IV ONE (12:12)
[2018-03-10] MEDS ORDERED: LIDOCAINE 1% INJ 10MG/ML (20 ML MDV) ONE (12:12)
--- NOTE | 2018-03-10 13:52 | P.PCN ---
Date of Procedure: 03/10/18 Description of Procedure: Brief history: Patient is a pleasant 73-year-old female presents to the hospital with complaints of melena was found to be anemic. The patient has a history of colonoscopy 13 years ago with no subsequent follow-up. Currently hemoglobin is stable after being transfused. Procedure performed: Esophagogastroduodenoscopy with cold biopsy Colonoscopy Estimated blood loss: Minimal. Preoperative diagnosis: Melena, anemia of acute blood loss Since Anesthesia: MAC Procedure: After informed consent was obtained from the patient was brought into the endoscopy unit and IV sedation was administered by anesthesia under continuous monitoring. Initially upper endoscopy was done. The Olympus GF 190 video endoscope was inserted into the mouth and the esophagus intubated without any difficulty and was gradually advanced into the stomach and duodenum and carefully examined. There was some erythema in the bulb and second portion of the duodenum which was suggestive of duodenitis with biopsies taken. There was a focal area of moderate erythema and edema in the duodenal sweep which was biopsied. The scope was then withdrawn into the stomach adequately insufflated with air and upon careful examination the antrum and body, cardia and fundus was performed. On retroflexion a fundic diverticulum was noted. Mild erythema of the gastric antrum and body suggestive of gastritis was noted and biopsied. A superficial nonbleeding ulcer in the gastric cardia was noted and biopsied. A small gastric polyp on the lesser curvature of the stomach was noted and removed with cold forceps. A moderate sized hiatal hernia was present. The scope was then withdrawn into the esophagus. The GE junction was located at 40 cm to the incisors. There was a patent distal esophageal Schatzki ring which was sequentially dilated with a 8910 millimeter balloon. Patient tolerated the procedure well. At this time the patient continued to remain sedation. Initial digital rectal examination was normal. Olympus CF 190 video colonoscope was then inserted into the rectum and gradually advanced to the cecum without any difficulty. Careful examination was performed as the scope was gradually being withdrawn. The prep was excellent except for scattered fecaliths which were noted secondary to the patient's diverticulosis. The cecum, ascending colon, transverse colon, descending colon, sigmoid colon and rectum appeared grossly normal with numerous small and large mouth diverticula in the sigmoid and descending colon. Retroflexion was performed in the rectum and no lesions were noted, the patient had moderate nonbleeding internal hemorrhoids. Patient tolerated the procedure well. Impression: 1. Duodenitis, biopsied. Gastritis, biopsied. Nonbleeding superficial gastric ulcer biopsied. Patent Schatzki's ring sequentially dilated. Hiatal hernia. Gastric polyp removed with cold forceps. 2. Internal hemorrhoids and diverticulosis. Recommendations: Findings of this examination were discussed with the patient as well as her sister and niece. Continue Protonix 40 mg by mouth twice daily. Patient will need repeat endoscopy in 6-8 weeks to check for ulcer healing and follow up with gastroenterology in 2 weeks. Continue to monitor hemoglobin and hematocrit and watch for signs of GI bleeding. If further bleeding occurs would recommend capsule endoscopy. Await pathology from biopsies.
[2018-03-10 14:23] VITALS: BMI 26.9
--- NOTE | 2018-03-10 19:58 | P.PN ---
Subjective Progress Note Date: 03/10/18 Patient was seen and examined at the bedside. The patient notes that she has not noticed any further episodes of black tarry stools. She underwent the EGD/ Colonoscopy today and notes that she has not noticed any further bleeding. She also denied fever, chills, chest pain, SOB, nausea, or vomiting. Objective - Vital Signs Vital signs: Vital Signs Temp 99.4 F 03/10/18 15:00 Pulse 92 03/10/18 15:00 Resp 20 03/10/18 15:00 BP 134/77 03/10/18 15:00 Pulse Ox 93 L 03/10/18 15:00 Intake & Output 03/10/18 03/10/18 03/11/18 06:59 18:59 06:59 Intake Total 1100 Balance 1100 Weight 73.346 kg Intake: IV 1100 Other: Voiding Method Bedside Commode # Voids 4 2 - Exam General: Non-toxic, in no acute distress HEENT: NC/AT, anicteric sclerae, moist conjunctiva, no lid-lag, PERRLA, oropharynx clear, no erythema, exudates Cardiovascular: S1/S2 wnl, no murmurs, rubs, or gallops Lungs: Clear to auscultation, normal respiratory effort, no accessory muscle use Abdominal: Soft, nontender, non-distended, no guarding, rebound, or rigidity, normoactive bowel sounds Skin: Warm, dry Extremities: No edema or contractures Psychiatric: Alert and oriented to person, place and time, appropriate affect, Intact judgment Neuro: CN II-XII grossly intact, no focal motor deficits - Labs CBC & Chem 7: 03/10/18 07:38 03/09/18 08:01 Labs: Abnormal Lab Results - Last 24 Hours (Table) 03/10/18 Range/Units 07:38 RBC 2.56 L (3.80-5.40) m/uL Hgb 7.7 L (11.4-16.0) gm/dL Hct 24.2 L (34.0-46.0) % Neutrophils # 8.0 H (1.3-7.7) k/uL Assessment and Plan Plan: Acute blood loss anemia secondary to superficial gastric ulcer - S/p EGD/Colonoscopy -- report reviewed: Duodenitis and gastritis, biopsied w/ patent schatzki ring dilated. Will need repeat EGD in 6-8 weeks - Hgb 7.7 today s/p total 1 U pRBCs - GI on the case - Full liquid diet for now LLE swelling and erythema - Will order LE duplex Leukocytosis - Likely reactive - Resolved DVT//GI prophy. - IPCDs - Protonix The patient is admitted with an anticipated greater than 2 midnight stay for evaluation of acute blood loss anemia due to GI bleeding. CODE STATUS:Full-code Discussed with: Patient Anticipated discharge date: 03/10/[address]: Home A total of 50 minutes was spent on the care of this complex patient more than 50 % of the time was spent in counseling and care coordination.
--- NOTE | 2018-03-10 21:13 | US ---
EXAMINATION TYPE: US venous doppler duplex LE LT DATE OF EXAM: 03/10/2018 9:06 PM COMPARISON: 03/08/2018 CLINICAL HISTORY: LLE edema, pain, and erythema. recent left total knee, fall, no h/o dvt, study done 48hrs prior to today's was negative, patient states swelling has decreased SIDE PERFORMED: Left TECHNIQUE: The lower extremity deep venous system is examined utilizing real time linear array sonog shari with graded compression, doppler sonography and color-flow sonography. VESSELS IMAGED: External Iliac Vein (EIV) Common Femoral Vein Deep Femoral Vein Greater Saphenous Vein * Femoral Vein Popliteal Vein Small Saphenous Vein * Proximal Calf Veins (* superficial vessels) Left Leg: Still appears negative for DVT IMPRESSION: Negative exam. No evidence of deep venous thrombosis in the left leg.
[2018-03-11 07:43] LABS: HCT 25.9 % (34.0-46.0); HGB 8.2 gm/dL (11.4-16.0); Hypochromasia Slight; MCH 30.4 pg (25.0-35.0); MCHC 31.6 g/dL (31.0-37.0); MCV 96.1 fL (80.0-100.0); Mean Platelet Volume 7.6; Platelet Count 395 k/uL (150-450); RDW 13.8 % (11.5-15.5); WBC 8.3 k/uL (3.8-10.6)
[2018-03-11] MEDS: PANTOPRAZOLE 40 MG/10 ML VIAL IVP SCH ×2 (09:12→20:15)
--- NOTE | 2018-03-11 13:05 | XR ---
EXAMINATION TYPE: XR foot complete LT , 3 VIEWS DATE OF EXAM ORDERED: 03/11/2018 HISTORY: Foot pain. COMPARISON: None. FINDINGS: No fracture or dislocation is seen. There are both plantar and Achilles calcaneal spurs. IMPRESSION: NO ACUTE OSSEOUS LESION.
--- NOTE | 2018-03-11 14:05 | P.PN ---
Subjective Progress Note Date: 03/11/18 Patient was seen and examined at the bedside. She denied any further episodes of cynthia blood or black stools. The patient endorsed having a fall on the night of 03/09/18 where she feels she sprained her L toes. She is able to ambulate with walker though continues to have pain with baring weight on the foot. She is otherwise denying any active complaints including chest pain, SOB, dizziness , palpitations, fever, chills, cough, abd pain, diarrhea, or constipation. Objective - Vital Signs Vital signs: Vital Signs Temp 99.6 F 03/11/18 06:00 Pulse 86 03/11/18 06:00 Resp 20 03/11/18 06:00 BP 152/78 03/11/18 06:00 Pulse Ox 98 03/11/18 06:00 Intake & Output 03/10/18 03/11/18 03/11/18 18:59 06:59 18:59 Intake Total 1100 200 580 Balance 1100 200 580 Weight 73.346 kg Intake: IV 1100 Oral 200 580 Other: Voiding Method Bedside Commode # Voids 2 2 3 - Exam General: Non-toxic, in no acute distress HEENT: NC/AT, anicteric sclerae, moist conjunctiva, no lid-lag, PERRLA, oropharynx clear, no erythema, exudates Cardiovascular: S1/S2 wnl, no murmurs, rubs, or gallops Lungs: Clear to auscultation, normal respiratory effort, no accessory muscle use Abdominal: Soft, nontender, non-distended, no guarding, rebound, or rigidity, normoactive bowel sounds Skin: Warm, dry Extremities: No edema or contractures, mild bruising over L 3rd and 4th toes w/ tenderness to palpation, ROM of ankle wnl w/ no pain elicited Psychiatric: Alert and oriented to person, place and time, appropriate affect, Intact judgment Neuro: CN II-XII grossly intact, no focal motor deficits - Labs CBC & Chem 7: 03/11/18 06:47 03/09/18 08:01 Labs: Abnormal Lab Results - Last 24 Hours (Table) 03/11/18 Range/Units 06:47 RBC 2.70 L (3.80-5.40) m/uL Hgb 8.2 L (11.4-16.0) gm/dL Hct 25.9 L (34.0-46.0) % Assessment and Plan Plan: Acute blood loss anemia secondary to superficial gastric ulcer - S/p EGD/Colonoscopy -- report reviewed: Duodenitis and gastritis, biopsied w/ patent schatzki ring dilated. Will need repeat EGD in 6-8 weeks - Hgb 8.2 today s/p total 1 U pRBCs - GI on the case - Switched to Regular diet LLE swelling and erythema - LE duplex negative L toe pain - Likely toe sprain - Foot x-ray negative for fractures Leukocytosis - Likely reactive - Resolved DVT//GI prophy. - IPCDs - Protonix The patient is admitted with an anticipated greater than 2 midnight stay for evaluation of acute blood loss anemia due to GI bleeding. CODE STATUS:Full-code Discussed with: Patient Anticipated discharge date: 03/11/[address]: Home A total of 30 minutes was spent on the care of this complex patient more than 50 % of the time was spent in counseling and care coordination.
[2018-03-12 07:45] VITALS: BP 131/76; PULSE 82; RESP 18; TEMP 99
[2018-03-12 08:47] LABS: HCT 26.1 % (34.0-46.0); HGB 8.4 gm/dL (11.4-16.0); Hypochromasia Slight; MCH 30.6 pg (25.0-35.0); MCHC 32.3 g/dL (31.0-37.0); MCV 94.8 fL (80.0-100.0); Mean Platelet Volume 6.9; Platelet Count 362 k/uL (150-450); RBC 2.75 m/uL (3.80-5.40); RDW 13.5 % (11.5-15.5); WBC 7.4 k/uL (3.8-10.6)
[2018-03-12] MEDS: PANTOPRAZOLE 40 MG/10 ML VIAL IVP SCH (10:04)
--- NOTE | 2018-03-12 10:33 | PN ---
PROGRESS NOTE DATE OF SERVICE: 03/11/2018 The patient is a 73-year-old pleasant white female admitted to the hospital with acute GI bleed and black tarry stools. She underwent an EGD and colonoscopy by Dr. Multani yesterday and was noted to have some gastritis and duodenitis, nonbleeding superficial gastric ulcer and internal hemorrhoids. The patient is doing well. No further bleeding. No abdominal pain. She had a fall yesterday and had some swelling of her left foot. She is status post knee surgery 2 weeks ago. PHYSICAL EXAMINATION: Appears comfortable. No apparent distress. VITAL SIGNS: Stable. Blood pressure is 152/71, pulse rate 78, temperature 99. HEENT examination unremarkable. Conjunctivae pink. Sclerae anicteric. Oral cavity no lesions. Neck no jugular venous distention or lymph node enlargement. Chest clear to auscultation. HEART: Regular rate and rhythm. ABDOMEN: Soft. Bowel sounds are positive. No organomegaly. Extremities: No pedal edema. Swelling of the left foot. Evidence of surgical scar left knee. NEUROLOGIC: Alert and oriented x3. No focal deficits. LABS: WBC 7.4, hemoglobin 8.2, and platelets of 395. IMPRESSION: 1. Acute gastrointestinal bleed, status post EGD and colonoscopy by Dr. Multani yesterday. Upper endoscopy revealed mild gastritis and superficial gastric ulcer. Colonoscopy revealed diverticulosis and internal hemorrhoids. The patient had no active bleeding. Hemoglobin stable at 8.4 g/dL. 2. Recent knee surgery 2 weeks ago now with left lower extremity swelling. She is scheduled for a duplex of the left lower extremity today. RECOMMENDATIONS: 1. Advance diet as tolerated. 2. Continue with Protonix 40 mg daily. 3. We will follow with you closely. Thank you for this consultation. MMODL / IJN: [id number] /
--- NOTE | 2018-03-12 15:39 | P.DS ---
Providers Date of admission: 03/08/18 15:43 Expected date of discharge: 03/12/18 Attending physician: Katie Kohli DO Consults: 03/08/18 15:43 Consult Physician Urgent Consulting Provider: Carola Murray Consult Reason/Comments: GI bleed Do you want consulting provider notified?: Yes Primary care physician: Physician Nonstaff Hospital Course: Patient is 73-year-old female with a past medical history of osteoarthritis status post left knee total arthroplasty 2 weeks prior to admission, and glaucoma who presented to the ED with complaints of melena and lightheadedness. The patient was found to have guaiac positive stools with hemoglobin of 7. She was admitted for further workup of acute blood loss anemia due to GI bleeding. She received 1 unit PRBCs, and gastroenterology was consulted. The patient was recommended to undergo EGD/colonoscopy which showed gastritis, duodenitis, Schatzki ring, gastric polyp, diverticulosis, hemorrhoids, and a superficial gastric ulcer. The patient was started on PPIs [id number] and subsequently had resolution of her GI bleeding. She also had edema of the left lower extremity for which a venous duplex was ordered and was negative for DVT. Discussed with GI with regards to DVT prophylaxis status post left total knee arthroplasty last and was advised that in light of a superficial gastric ulcer, the patient can continue on aspirin 325 mg twice a day and PPI therapy with subsequent follow-up with GI and orthopedic surgery. She is presently ready and stable for discharge to home. Plan - Discharge Summary Discharge Rx Participant: Yes New Discharge Prescriptions: New Pantoprazole [Protonix] 40 mg PO DAILY #30 tablet. Continue Aspirin 325 mg PO BID #60 tab Sennosides [Senokot] 1 tab PO BID #60 tablet Acetaminophen Tab [Tylenol] 1 - 2 tab PO Q8H PRN #90 tablet PRN Reason: Pain Discharge Medication List Aspirin 325 mg PO BID #60 tab 02/22/18 [Rx] Sennosides [Senokot] 1 tab PO BID #60 tablet 02/22/18 [Rx] Acetaminophen Tab [Tylenol] 1 - 2 tab PO Q8H PRN #90 tablet 02/23/18 [Rx] Pantoprazole [Protonix] 40 mg PO DAILY #30 tablet. 03/12/18 [Rx] Follow up Appointment(s)/Referral(s): [facility], [NON-STAFF] - 1-2 Days Nonstaff,Physician [Primary Care Provider] - 1-2 days Patient Instructions/Handouts: Gastrointestinal Bleeding (DC) Discharge Disposition: HOME WITH HOME HEALTH SERVICES
--- NOTE | 2018-03-16 11:43 | CDI ---
Last Revision, May 2017 Documentation Clarification Form Date: 03/16/18 From: Fannie Rad Hamida Randall, [employer] Hours-8:30 am & 5 pm M-F Admit Date: 03/08/2018 3:43:00 PM Patient Name: Nancy Schreiber Visit Number: [id number] Discharge Date: ATTENTION: The Clinical Documentation Specialists (CDI) and [facility] Coding Staff appreciate your assistance in clarifying documentation. Please respond to the clarification below the line at the bottom and electronically sign. The CDI & [facility] Coding staff will review the response and follow-up if needed. Please note: Queries are made part of the Legal Health Record. If you have any questions, please contact the author of this message via ITS. Julee Morataya MD The final diagnosis of the pathology report includes biopsy gastric cardia ulcer Maltoma, low grade. Documentation states: presents with GI bleeding Patient history/risk factors: GI bleeding, duodenitis, gastritis, gastric ulcer , hiatal hernia, internal hemorrhoids, diverticulosis Clinical Indicators: Treatment: EGD w bx and polypectomy 1. In your professional opinion, do you agree with the pathology report specifying Maltoma low grade of gastric cardia? Yes No Other (please specify) Unable to determine 2. In your professional opinion, what was the cause of the GI bleeding? Please specify ___Possibly secondary to ASA and NSAID use for DVT prophy. and pain control respectively_ Please continue to document in your progress notes and discharge summary in order to capture severity of illness and risk of mortality. Include clinical findings that support your diagnosis. MTDD
== END 2018-03-12 10:30 | disposition home health service (06) | DRG 378 ==
LOC: EC 12:37 → 4MS4W 15:43
PROVIDERS: ADMIT Internal Medicine; ATTEND Internal Medicine
PROC: 30233N1 Transfusion of Nonautologous Red Blood Cells into Peripheral Vein, Percutaneous Approach (ICD-10-PCS; principal; 2018-03-08)
PROC: 0DB68ZX Excision of Stomach, Via Natural or Artificial Opening Endoscopic, Diagnostic (ICD-10-PCS; 2018-03-10)
PROC: 0D738ZZ Dilation of Lower Esophagus, Via Natural or Artificial Opening Endoscopic (ICD-10-PCS; 2018-03-10)
PROC: 0DJD8ZZ Inspection of Lower Intestinal Tract, Via Natural or Artificial Opening Endoscopic (ICD-10-PCS; 2018-03-10)
PROC: 0DB98ZX Excision of Duodenum, Via Natural or Artificial Opening Endoscopic, Diagnostic (ICD-10-PCS; 2018-03-10 11:30)
PROC: 0DB68ZX Excision of Stomach, Via Natural or Artificial Opening Endoscopic, Diagnostic (ICD-10-PCS; 2018-03-10 11:30)
DX: K92.1 Melena (principal); D62 Acute posthemorrhagic anemia; K22.2 Esophageal obstruction; I34.1 Nonrheumatic mitral (valve) prolapse; K25.9 Gastric ulcer, unspecified as acute or chronic, without hemorrhage or perforation; K29.80 Duodenitis without bleeding; H40.9 Unspecified glaucoma; S93.509A Unspecified sprain of unspecified toe(s), initial encounter; K59.00 Constipation, unspecified; K29.70 Gastritis, unspecified, without bleeding; K44.9 Diaphragmatic hernia without obstruction or gangrene; K57.30 Diverticulosis of large intestine without perforation or abscess without bleeding; K64.8 Other hemorrhoids; K31.7 Polyp of stomach and duodenum; K21.9 Gastro-esophageal reflux disease without esophagitis; D72.829 Elevated white blood cell count, unspecified; M19.91 Primary osteoarthritis, unspecified site; T39.015A Adverse effect of aspirin, initial encounter; T39.395A Adverse effect of other nonsteroidal anti-inflammatory drugs [NSAID], initial encounter; Z96.652 Presence of left artificial knee joint; Z79.82 Long term (current) use of aspirin; Z79.899 Other long term (current) drug therapy; Z87.01 Personal history of pneumonia (recurrent); Z81.8 Family history of other mental and behavioral disorders; W19.XXXA Unspecified fall, initial encounter
CPT/HCPCS: 36415; 43239; 43249; 45378; 74018; 80053; 81003; 82272; 82550; 82553; 83605; 83735; 84484; 85025; 85027; 85610; 85730; 86850; 86900; 86901; 86920; 88305; 88341; 88342; 96360; 96361; 99285

== ENCOUNTER 2024-10-24 17:42 | Emergency (ER) | payer MEDICARE, OTHER ==
--- NOTE | 2024-10-24 18:37 | ED ---
Fall HPI - General Chief Complaint: Fall Stated Complaint: Fall/Head Bleeding Time Seen by Provider: 10/24/24 17:51 Source: patient, family, RN notes reviewed Mode of arrival: wheelchair - History of Present Illness MD Complaint: fall Onset/Timin -: minutes(s) Fall From: standing Fall Witnessed: yes, by bystander Place Fall Occurred: street Loss of Consciousness: none Prolonged Down Time?: no Symptoms Prior to Fall: none Location: head Severity: mild Context: tripped/slipped Associated Symptoms: denies - Related Data Home Medications Medication Instructions Recorded Confirmed Multivit with Calcium,Iron,Min 1 tab PO DAILY 08/29/22 08/29/22 [Women's Multivitamin] Previous Rx's Medication Instructions Recorded Bacitracin/Polymyx Oint 1 applic TOPICAL BID #30 gm 10/24/24 [Polysporin Oint] Allergies Allergy/AdvReac Type Severity Reaction Status Date / Time No Known Allergies Allergy Verified 10/24/24 17:49 Review of Systems ROS Statement: Those systems with pertinent positive or pertinent negative responses have been documented in the HPI. ROS Other: All systems not noted in ROS Statement are negative. Past Medical History Past Medical History: GERD/Reflux, Osteoarthritis (OA), Pneumonia History of Any Multi-Drug Resistant Organisms: None Reported Past Surgical History: Heart Catheterization, Joint Replacement Additional Past Surgical History / Comment(s): total lt knee replacement Past Anesthesia/Blood Transfusion Reactions: No Reported Reaction Past Psychological History: Depression Smoking Status: Never smoker Past Alcohol Use History: Rare Past Drug Use History: None Reported - Past Family History Mother Family Medical History: Dementia Father Additional Family Medical History / Comment(s): father was healthy lived to be almost 101 years old General Exam Limitations: no limitations General appearance: alert, in no apparent distress Head exam: Present: normocephalic, other (12 cm irregular, deep laceration across left forehead through hairline with venous bleeding. Negative obvious deformity, depression, hematoma, Pruitt sign) Eye exam: Present: normal appearance, PERRL, EOMI, other (Negative raccoon eyes). Absent: scleral icterus, conjunctival injection, periorbital swelling Pupils: Present: normal accommodation ENT exam: Present: normal exam, normal oropharynx, mucous membranes moist, TM's normal bilaterally (Negative hemotympanum) Neck exam: Present: normal inspection. Absent: tenderness, meningismus, lymphadenopathy Respiratory exam: Present: normal lung sounds bilaterally. Absent: respiratory distress, wheezes, rales, rhonchi, stridor, chest wall tenderness, accessory muscle use, decreased breath sounds, prolonged expiratory Cardiovascular Exam: Present: regular rate, normal rhythm, normal heart sounds. Absent: systolic murmur, diastolic murmur, rubs, gallop, clicks GI/Abdominal exam: Present: soft, normal bowel sounds. Absent: distended, tenderness, guarding, rebound, rigid Extremities exam: Present: normal inspection, full ROM, normal capillary refill. Absent: tenderness, pedal edema, joint swelling, calf tenderness Back exam: Present: normal inspection Neurological exam: Present: alert, oriented X3, CN II-XII intact Psychiatric exam: Present: normal affect, normal mood Skin exam: Present: warm, dry, intact, normal color. Absent: rash Course Vital Signs 10/24/24 10/24/24 10/24/24 17:44 18:47 19:42 Temperature 97.8 F 98.2 F Pulse Rate 113 H 94 85 Respiratory 18 20 18 Rate Blood Pressure 181/77 163/70 155/77 O2 Sat by Pulse 98 99 99 Oximetry Procedures - Laceration Laceration #1 Consent Obtained: verbal consent Indication: laceration Site: scalp Size (cm): 12 Description: linear, irregular Depth: simple, single layer Anesthetic Used: lidocaine 1%, with epi Anesthesia Technique: local infiltration Amount (mls): 10 Pre-repair: wound explored, irrigated extensively Type of Sutures: other ([place]) Number of Sutures: 12 Patient Tolerated Procedure: well, no complications Medical Decision Making - Medical Decision Making Was pt. sent in by a medical professional or institution (, PA, SHREDDING SPECIALIST, urgent care, hospital, or assisted...) When possible be specific @ -[No] Did you speak to anyone other than the patient for history (EMS, parent, family, police, friend...)? What history was obtained from this source @ -[No] Did you review nursing and triage notes (agree or disagree)? Why? @ -[I reviewed and agree with nursing and triage notes] Were old charts reviewed (outside hosp., previous admission, EMS record, old EKG, old radiological studies, urgent care reports/EKG's, assisted records)? Report findings @ -[No old charts were reviewed] Differential Diagnosis (chest pain, altered mental status, abdominal pain women, abdominal pain men, vaginal bleeding, weakness, fever, dyspnea, syncope, headache, dizziness, GI bleed, back pain, seizure, CVA, palpatations, mental hea lth, musculoskeletal)? @ -Differential Musculoskeletal Muscular strain, contusion, ligament sprain, fracture, arthritis, septic arthritis, bursitis, cellulitis, muscle spasm, nerve compression, DVT, arterial occlusion, herpes zoster, electrolyte abnormality, tumor.... This is not meant to be in all inclusive list EKG interpreted by me (3pts min.). @ -Not done X-rays interpreted by me (1pt min.). @ -[None done] CT interpreted by me (1pt min.). @ -[None done] U/S interpreted by me (1pt. min.). @ -[None done] What testing was considered but not performed or refused? (CT, X-rays, U/S, labs)? Why? @ -[None] What meds were considered but not given or refused? Why? @ -[None] Did you discuss the management of the patient with other professionals (professionals i.e. , PA, SHREDDING SPECIALIST, lab, RT, psych nurse, social services specialist, oil burner journeyman, teacher, hearing officer, caser up)? Give summary @ -[No] Was smoking cessation discussed for >3mins.? @ -[No] Was critical care preformed (if so, how long)? @ -[No] Were there social determinants of health that impacted care today? How? (Homelessness, low income, unemployed, alcoholism, drug addiction, transportation, low edu. Level, literacy, decrease access to med. care, [place] [facility], rehab)? @ -[No] Was there de-escalation of care discussed even if they declined (Discuss DNR or withdrawal of care, Hospice)? DNR status @ -[No] What co-morbidities impacted this encounter? (DM, HTN, Smoking, COPD, CAD, Cancer, CVA, ARF, Chemo, Hep., AIDS, mental health diagnosis, sleep apnea, morbid obesity)? @ -[None] Was patient admitted / discharged? Hospital course, mention meds given and route, prescriptions, significant lab abnormalities, going to OR and other pertinent info. @ -[hospital course] Undiagnosed new problem with uncertain prognosis? @ -[No] Drug Therapy requiring intensive monitoring for toxicity (Heparin, Nitro, Insulin, Cardizem)? @ -[No] Were any procedures done? @ -Laceration stapled. See procedure note Diagnosis/symptom? @ -[default] Acute, or Chronic, or Acute on Chronic? @ -Acute Uncomplicated (without systemic symptoms) or Complicated (systemic symptoms)? @ -Uncomplicated Side effects of treatment? @ -[No] Exacerbation, Progression, or Severe Exacerbation? @ -[No] Poses a threat to life or bodily function? How? (Chest pain, [place], [place], pneumonia, PE, COPD, DKA, ARF, appy, cholecystitis, CVA, Diverticulitis, Homicidal, Suicidal, threat to staff... and all critical care pts) @ -[No] Disposition Clinical Impression: Fall, Laceration of scalp Disposition: HOME SELF-CARE Condition: Good Instructions (If sedation given, give patient instructions): Fall Prevention for Older Adults (ED), Staple Care (ED), Head Laceration (ED) Additional Instructions: Keep area of laceration clean with antibacterial soap and water at least twice daily with dressing change. May follow-up with any medical facility for staple removal in 57 days Prescriptions: Bacitracin/Polymyx Oint [Polysporin Oint] 1 applic TOPICAL BID #30 gm Is patient prescribed a controlled substance at d/c from ED?: No Referrals: Nonstaff,Physician [REFERRING] - 1-2 days Andres Reyes MD [STAFF PHYSICIAN] - 1-2 days Time of Disposition: 19:40
--- NOTE | 2024-10-24 19:05 | CT ---
EXAMINATION TYPE: CT brain cspine wo con DATE OF EXAM: 10/24/2024 6:54 PM COMPARISON: 08/29/2022 CLINICAL INDICATION: Female, 79 years old with history of Fall, forehead laceration; Fall, large fore head laceration., pain TECHNIQUE: Brain: Multiple axial CT images of the brain were obtained without IV contrast. Cspine: Axial CT images from the skull base to the inferior aspect of T2 we obtained without intraven ous contrast. Coronal and sagittal reformatted images were also reviewed. . CT DLP: 1294.1 mGycm, Automated exposure control for dose reduction was used. FINDINGS: Brain: Extra-axial spaces: No abnormal extra-axial fluid collections. Ventricular system: Within normal limits Cerebral parenchyma: No acute intraparenchymal hemorrhage or mass effect. The harvey-white junction is well differentiated. Cerebellum: Unremarkable. Mass effect: No evidence of midline shift. Intracranial vasculature: unremarkable Soft tissues: Frontal scalp laceration with skin criss present. Calvarium/osseous structures: No depressed skull fracture. Paranasal sinuses and mastoid air cells: Clear. Visualized orbits: Orbital contents are intact. Cervical spine: Fracture: None. Osseous structures: Multilevel degenerative disc disease changes with endplate spurring and disc oste ophyte complex's. Vertebral alignment: Within normal limits. Spinal canal/Neural Foramina: No evidence of significant spinal canal narrowing. No evidence for sign ificant neural foraminal stenosis. Neck soft tissues: Prevertebral soft tissues are within normal limits. Other: The airway is patent. The lung apices are clear. Atherosclerosis of the carotid bifurcations. IMPRESSION: 1. No acute intracranial process. 2. Frontal scalp laceration with skin criss. No evidence for depressed skull fracture. No intracr anial hemorrhage identified. 3. No evidence of cervical spine fracture. 4. Mild to moderate multilevel degenerative disc disease. [facility], , 10/24/2024 7:03 PM
[2024-10-24 19:43] VITALS: BP 155/77; PULSE 85; RESP 18; TEMP 98.2
[2024-10-24] MEDS: LIDOCAINE 1%-EPI 1:100,000 20 ML VIAL SQ STA (20:08)
== END 2024-10-24 20:17 | disposition home or self-care (01) ==
LOC: EC 17:42
DX: S01.01XA Laceration without foreign body of scalp, initial encounter (principal); W18.49XA Other slipping, tripping and stumbling without falling, initial encounter
CPT/HCPCS: 12004; 70450; 72125; 99284